=== PATIENT | female | born 2000 ===

== ENCOUNTER → 2021-05-13 | Outpatient (CLI) | payer SELFPAY ==
[2021-05-15 11:11] LABS: CHLAMYDIA BY NAA Positive (Negative); GONOCOCCUS BY NAA Negative (Negative); TRICH VAG BY NAA Positive (Negative)
== END | disposition home or self-care (01) ==
LOC: LAB SHORT 11:58
PROVIDERS: Physician Assistant
DX: Z72.51 High risk heterosexual behavior (principal)
CPT/HCPCS: 87070; 87205; 87491; 87591; 87661

== ENCOUNTER → 2023-05-17 | Outpatient (CLI) | payer OTHER | LOC: LAB SHORT 13:25 → LAB 13:25 | DX: R82.81 Pyuria (principal) | CPT/HCPCS: 87086 ==

== ENCOUNTER → 2023-06-18 | Outpatient (CLI) | payer OTHER ==
[2023-06-19 11:08] LABS: G. vaginalis (DNA Probe) Positive (NEGATIVE); T. vaginalis (DNA Probe) Negative (NEGATIVE)
[2023-06-19 11:09] LABS: Candida species (DNA Probe) Negative (NEGATIVE)
[2023-06-21 01:08] LABS: CHLAMYDIA TRACHOMATIS, NAA Negative (Negative)
== END | disposition home or self-care (01) ==
LOC: LAB 19:03 → LAB SHORT 19:03
PROVIDERS: Obstetrics & Gynecology
DX: Z11.3 Encounter for screening for infections with a predominantly sexual mode of transmission (principal); N89.8 Other specified noninflammatory disorders of vagina
CPT/HCPCS: 87480; 87491; 87510; 87591; 87660; G0145

== ENCOUNTER 2024-09-04 20:15 | Observation (INO) | payer OTHER ==
[~2024-09-04] VITALS: Ht 157.5 cm; Wt 85.7 kg
[2024-09-04 20:47] LABS: Hematocrit 43.2 % (33.0-51.0); Hemoglobin 14.5 g/dL (11.5-16.0); Mean Corpuscular HGB Conc 33.6 g/dL (31.5-36.5); Mean Corpuscular Volume 93 fL (80-100); Mean Platelet Volume 10.8 fL (9.1-12.4); Platelet Count 247 K/mm3 (150-400); RDW Coefficient Variation 12.3 % (11.7-14.2); RDW Standard Deviation 42.1 fL (35.1-46.3); Red Blood Cell Count 4.67 M/mm3 (3.80-5.20); White Blood Cell Count 11.94 K/mm3 (4.00-11.30)
[2024-09-04 21:03] LABS: Ethanol (Alcohol), Blood, Med <3 mg/dL; Salicylate <1.7 mg/dL (2.8-20.0)
[2024-09-04 21:06] LABS: Acetaminophen, Random <2.0 ug/mL (10.0-30.0); Alanine Aminotransfer (ALT/SGP 19 U/L (12-78); Albumin, Blood 3.6 g/dL (3.4-5.0); Alk Phos 52 U/L (50-136); Anion Gap 19 mmol/L (3-11); Aspartate Aminotrans (AST/SGOT 26 U/L (12-37); Bilirubin, Total 0.3 mg/dL (0.1-1.0); Blood Urea Nitrogen 15 mg/dL (8-24); Bun/Creatinine Ratio 12.8 (12.0-20.0); CO2, Blood 19 mmol/L (21-32); Calcium, Blood 8.5 mg/dL (8.5-10.1); Chloride, Blood 101 mmol/L (98-108); Creatinine, Blood 1.17 mg/dL (0.40-1.00); Globulin, Blood 3.5 g/dL (2.2-4.0); Glomerular Filtration Rate 66 (60-); Glucose, Blood 347 mg/dL (70-99); Potassium, Blood 2.6 mmol/L (3.5-5.5); Sodium, Blood 136 mmol/L (136-145); Total Protein, Blood 7.1 g/dL (6.4-8.2)
[2024-09-04 21:15] LABS: BASOPHILS PERCENT MAN 0 % (0-2); EOSINOPHILS PERCENT MAN 0 % (0-6); LYMPHOCYTES ABSOLUTE MAN 6.32 K/mm3 (0.84-5.20); LYMPHOCYTES PERCENT MAN 53 % (21-46); MONOCYTES ABSOLUTE MAN 0.95 K/mm3 (0.16-1.47); MONOCYTES PERCENT MAN 8 % (4-13); NEUTROPHILS ABSOLUTE MAN 4.65 K/mm3 (1.96-9.15); SEG NEUTROPHILS PERCENT MAN 39 % (41-73); TOTAL CELLS COUNTED 100
[2024-09-04] MEDS ORDERED: NS 1,000 ML IV SCH (22:45)
[2024-09-04] MEDS ORDERED: Potassium Chl 20MEQ/Water100ML 100 ML IV SCH (22:45)
[2024-09-04] MEDS ORDERED: Potassium Chloride 20 MEQ TabCR PO ONE (22:45)
[2024-09-05] MEDS ORDERED: Ondansetron HCl 2 MG / ML 2ML Vial IV ONE (04:10)
[2024-09-05 04:21] LABS: Base Excess Venous -14.4 mmol/L; Bicarbonate Venous 14.1 mmol/L (24.0-30.0); pH Blood Venous 7.25 (7.34-7.37)
[2024-09-05 04:23] LABS: PCO2 Venous 29.3 mmHg (38-42)
[2024-09-05 04:33] LABS: U Amphetamine Screen Not Detected; U Barbituate Screen Not Detected; U Benzodiazapine Screen Not Detected; U Buprenorphine Screen Not Detected; U Cannabinoids Screen DETECTED; U Cocaine Screen DETECTED; U Methadone Screen Not Detected; U Methamphetamine Screen Not Detected; U Opiates Screen Not Detected; U Oxycodone Screen Not Detected; U Phencyclidine Screen Not Detected
[2024-09-05] MEDS ORDERED: FLU VACC TS2024-25(6MOS UP)/PF 45 MCG/0.5 ML SYRINGE IM ONE (06:05)
[2024-09-05] MEDS ORDERED: Ondansetron HCl 2 MG / ML 2ML Vial IV PRN (06:05)
[2024-09-05] MEDS ORDERED: Acetaminophen 325 MG TABLET PO PRN (06:05)
[2024-09-05 07:00] LABS: Bun/Creatinine Ratio 16.4 (12.0-20.0); Calcium, Blood 8.6 mg/dL (8.5-10.1); Creatinine, Blood 0.67 mg/dL (0.40-1.00); Potassium, Blood 5.9 mmol/L (3.5-5.5)
[2024-09-05] MEDS ORDERED: Lactated Ringer's 1,000 ML IV SCH (07:00)
[2024-09-05 08:30] LABS: Base Excess Venous -1.7 mmol/L; Bicarbonate Venous 21.5 mmol/L (24.0-30.0); PCO2 Venous 53.4 mmHg (38-42); pH Blood Venous 7.28 (7.34-7.37)
[2024-09-05 12:25] VITALS: BP 151/96
[2024-09-05 13:43] LABS: Calcium, Blood 8.4 mg/dL (8.5-10.1); Creatinine, Blood 0.67 mg/dL (0.40-1.00); Potassium, Blood 3.5 mmol/L (3.5-5.5)
[2024-09-05 15:34] VITALS: BP 144/96
[2024-09-05] MEDS ORDERED: Dronabinol 2.5 MG Cap PO SCH (16:30)
[2024-09-05] MEDS ORDERED: D5W-LR 1,000 ML IV SCH (16:30)
--- NOTE | 2024-09-05 19:00 | NUR ---
SHIFT SUMMARY PT A&OX4, VSS, TOLERATING MINIMAL FLUIDS, AND DENIED PAIN. PT CONT TO C/O NAUSEA AND FATIGUE. BLOOD SUGAR LOW 69 TOWARDS END OF SHIFT, JUICE OFFERED, AND BLOOD SUGAR IMPROVED AND WNL AT 80. D5LR CONT TO INFUSE PER ORDER. NO OTHER ACUTE CHANGES. CALL LIGHT WITHIN REACH AND PT ABLE TO MAKE NEEDS KNOWN.
[2024-09-05 19:24] VITALS: BP 129/79
[2024-09-05] MEDS ORDERED: Famotidine 20 MG Tab PO SCH (21:00)
--- NOTE | 2024-09-06 03:46 | NUR ---
SHIFT SUMMARY PT IS A/O X4, ABLE TO MAKE HER NEEDS KNOWN, COOPERATIVE WITH CARE. AMBULATES WITH SBA D/T REPORTING WEAKNESS R/T NO PO NUTRITION DURING THIS SHIFT. ENCOURAGED PO FLUIDS. BG Q6: 94. TELE:NSR @80, PT DENIES PAIN/PRESSURE/SOB. D5LR INFUSING @100MLS/HR. NO ACUTE EVENTS DURING THIS SHIFT. BED AT THE LOWEST POSITION, CALL LIGHT W/I REACH. FRIENDS BY THE BEDSIDE AT , AND A FEMALE FRIEND SPENDING THE NIGHT IN THE HOSPITAL ROOM WITH THE PT FOR SUPPORT.
[2024-09-06 04:13] VITALS: BP 141/100
[2024-09-06 05:45] LABS: Bicarbonate Venous 26.6 mmol/L (24.0-30.0); PCO2 Venous 44.1 mmHg (38-42); pH Blood Venous 7.41 (7.34-7.37)
[2024-09-06 06:30] LABS: Albumin, Blood 3.3 g/dL (3.4-5.0); Bilirubin, Total 0.4 mg/dL (0.1-1.0); Bun/Creatinine Ratio 2.4 (12.0-20.0); Calcium, Blood 8.6 mg/dL (8.5-10.1); Creatinine, Blood 0.82 mg/dL (0.40-1.00); Globulin, Blood 3.2 g/dL (2.2-4.0); Potassium, Blood 3.7 mmol/L (3.5-5.5); Total Protein, Blood 6.5 g/dL (6.4-8.2)
[2024-09-06 08:00] VITALS: BP 130/93
[2024-09-06] MEDS ORDERED: Enoxaparin 40 MG/0.4 ML SYR SC SCH (09:00)
[2024-09-06] MEDS ORDERED: ONDA4ODT MM (11:59)
[2024-09-06] MEDS ORDERED: FAMO20 PO (11:59)
--- NOTE | 2024-09-06 14:14 | NUR ---
DISCHARGE NOTE PT DISCHARGED HOME AT 1405. PT PROVIDED W/ VERBAL AND WRITTEN INSTRCUTIONS AND REPORTED UNDERSTANDING. PT A&OX4, VSS, AMB IND, TOLERATING SMALL AMOUNTS OF PO, VOIDING, AND DENIED PAIN. BELONGINGS WERE RETURNED AND PT ESCOURTED OUT BY HER FRIEND.
== END 2024-09-06 14:12 | disposition home or self-care (01) ==
LOC: ER 20:15 → MEDS 20:16 → ERHOLD 20:16 → MEDS 09-05 12:14 → UNDODEPER 09-05 12:18 → ENPENDDIS 09-06 11:49 → MEDS 09-06 14:12
PROVIDERS: Internal Medicine; Student in an Organized Health Care Education/Training Program; ADMIT Student in an Organized Health Care Education/Training Program
DX: T40.5X1A Poisoning by cocaine, accidental (unintentional), initial encounter (principal); R55 Syncope and collapse; F14.10 Cocaine abuse, uncomplicated; R73.9 Hyperglycemia, unspecified; E87.21 Acute metabolic acidosis; E87.6 Hypokalemia; J45.909 Unspecified asthma, uncomplicated; Z88.8 Allergy status to other drugs, medicaments and biological substances
CPT/HCPCS: 36415; 74176; 80048; 80053; 80320; 81025; 82010; 82803; 82947; 83036; 83605; 83735; 85025; 93005; 93010; 96361; 96365; 96366; 96375; 96376; 99285-25; A9270; G0378; G0480; J2405; J3480; J7030; J7120; J7121; Q0167

== ENCOUNTER → 2024-10-07 | Outpatient (CLI) | payer OTHER ==
[~2024-10-07] MED LIST: FAMO20 PO; ONDA4ODT MM
[2024-10-07 21:44] LABS: Chlamydia Trachomatis Vaginal NOT DETECTED (NOT DETECT); Neisseria Gonorrhoea Vaginal NOT DETECTED (NOT DETECT)
== END ==
LOC: LAB 16:20 → LAB SHORT 16:20
PROVIDERS: Physician Assistant
DX: Z11.3 Encounter for screening for infections with a predominantly sexual mode of transmission (principal)
CPT/HCPCS: 87491; 87591

== ENCOUNTER 2025-03-24 23:09 | Inpatient (IN) | payer SELFPAY ==
[~2025-03-24] VITALS: Ht 160 cm; Wt 85.7 kg
[~2025-03-24 23:09] MED LIST changes: +Etomidate 2MG / ML 10ML Vial IV ONE; +Ketamine HCL 10 MG/ML 5ML SYR IV ONE; +Midazolam HCl 1MG / ML 2ML Vial IV ONE; +SuccINYLCHOLINE Chloride 100 MG/5 ML 5MLSYR IV ONE
[2025-03-24] MEDS ORDERED: DiphenhydrAMINE HCl 50 MG/ML 1ML Vial IV ONE (23:15)
[2025-03-24] MEDS ORDERED: EpiNEPhrine 1 MG/1 ML 1ML Vial IM ONE (23:20)
[2025-03-24 23:34] LABS: pH Blood Venous 7.41 (7.34-7.37)
[2025-03-24] MEDS ORDERED: Ketamine HCl 100 MG / ML 5ML Vial IV ONE (23:40)
[2025-03-24 23:58] LABS: BASOPHILS ABSOLUTE AUTO 0.01 K/mm3 (0.00-0.23); BASOPHILS PERCENT AUTO 0 % (0-2); EOSINOPHILS ABSOLUTE AUTO 0.04 K/mm3 (0.00-0.68); EOSINOPHILS PERCENT AUTO 1 % (0-6); Hematocrit 46.0 % (33.0-51.0); Hemoglobin 15.8 g/dL (11.5-16.0); IMMATURE GRAN ABSOLUTE AUTO 0.01 K/mm3 (0.00-0.10); IMMATURE GRAN PERCENT AUTO 0 % (0-1); LYMPHOCYTES ABSOLUTE AUTO 4.07 K/mm3 (0.84-5.20); LYMPHOCYTES PERCENT AUTO 56 % (21-46); MONOCYTES ABSOLUTE AUTO 0.54 K/mm3 (0.16-1.47); MONOCYTES PERCENT AUTO 8 % (4-13); Mean Corpuscular HGB Conc 34.3 g/dL (31.5-36.5); Mean Corpuscular Volume 89 fL (80-100); NEUTROPHILS ABSOLUTE AUTO 2.55 K/mm3 (1.96-9.15); NEUTROPHILS PERCENT AUTO 35 % (41-73); NRBC ABSOLUTE 0.00 K/mm3 (0.00-0.02); NRBC Auto 0.0 /100 WBC (0.0-0.2); Platelet Count 283 K/mm3 (150-400); RDW Coefficient Variation 12.1 % (11.7-14.2); RDW Standard Deviation 40.0 fL (35.1-46.3)
[2025-03-25] VITALS (62 sets, daily range): BP systolic 112–163; BP diastolic 60–151
[2025-03-25 00:10] LABS: Alanine Aminotransfer (ALT/SGP 23.0 U/L (12-78); Albumin, Blood 3.6 g/dL (3.4-5.0); Albumin/Globulin Ratio 0.9 (0.8-1.8); Anion Gap 11.0 mmol/L (3-11); Aspartate Aminotrans (AST/SGOT 21.0 U/L (12-37); Bilirubin, Total 0.4 mg/dL (0.1-1.0); Blood Urea Nitrogen 14.0 mg/dL (8-24); CO2, Blood 20.0 mmol/L (21-32); Calcium, Blood 8.4 mg/dL (8.5-10.1); Chloride, Blood 108.0 mmol/L (98-108); Creatinine, Blood 0.98 mg/dL (0.40-1.00); Globulin, Blood 4.0 g/dL (2.2-4.0); Glucose, Blood 103.0 mg/dL (70-99); Magnesium, Blood 2.2 mg/dL (1.6-2.4); Potassium, Blood 3.5 mmol/L (3.5-5.5); Sodium, Blood 135.0 mmol/L (136-145); Total Protein, Blood 7.6 g/dL (6.4-8.2)
[2025-03-25] MEDS ORDERED: Albuterol 2.5 MG/3 ML VIAL INH PRN (00:30)
[2025-03-25] MEDS ORDERED: Albuterol 2.5 MG/3 ML VIAL INH SCH (00:30)
[2025-03-25] MEDS ORDERED: FentaNYL Citrate 50 MCG/ML 2 ML Injection IV PRN ×2 (00:30→09:40)
[2025-03-25] MEDS ORDERED: Midazolam HCl 1MG / ML 2ML Vial IV PRN (00:35)
[2025-03-25 00:39] LABS: U Amphetamine Screen Not Detected; U Barbituate Screen Not Detected; U Benzodiazapine Screen Not Detected; U Buprenorphine Screen Not Detected; U Cannabinoids Screen DETECTED; U Cocaine Screen Not Detected; U Methadone Screen Not Detected; U Methamphetamine Screen Not Detected; U Opiates Screen Not Detected; U Oxycodone Screen Not Detected; U Phencyclidine Screen Not Detected
[2025-03-25] MEDS ORDERED: NS 500 ML IV SCH (02:10)
[2025-03-25] MEDS ORDERED: NS 500 ML IV ONE (02:10)
[2025-03-25] MEDS ORDERED: Hydrogen Peroxide 1.5 % Solution MT SCH (04:00)
[2025-03-25 04:01] LABS: BASOPHILS ABSOLUTE AUTO 0.01 K/mm3 (0.00-0.23); BASOPHILS PERCENT AUTO 0 % (0-2); EOSINOPHILS ABSOLUTE AUTO 0.01 K/mm3 (0.00-0.68); EOSINOPHILS PERCENT AUTO 0 % (0-6); Hematocrit 42.6 % (33.0-51.0); Hemoglobin 14.8 g/dL (11.5-16.0); IMMATURE GRAN ABSOLUTE AUTO 0.05 K/mm3 (0.00-0.10); IMMATURE GRAN PERCENT AUTO 0 % (0-1); LYMPHOCYTES ABSOLUTE AUTO 0.76 K/mm3 (0.84-5.20); LYMPHOCYTES PERCENT AUTO 6 % (21-46); MONOCYTES ABSOLUTE AUTO 0.17 K/mm3 (0.16-1.47); MONOCYTES PERCENT AUTO 1 % (4-13); Mean Corpuscular HGB Conc 34.7 g/dL (31.5-36.5); Mean Corpuscular Volume 90 fL (80-100); NEUTROPHILS ABSOLUTE AUTO 12.91 K/mm3 (1.96-9.15); NEUTROPHILS PERCENT AUTO 93 % (41-73); NRBC ABSOLUTE 0.00 K/mm3 (0.00-0.02); NRBC Auto 0.0 /100 WBC (0.0-0.2); Platelet Count 225 K/mm3 (150-400); RDW Coefficient Variation 11.9 % (11.7-14.2); RDW Standard Deviation 39.2 fL (35.1-46.3)
[2025-03-25 04:23] LABS: Magnesium, Blood 1.8 mg/dL (1.6-2.4)
[2025-03-25 04:24] LABS: Alanine Aminotransfer (ALT/SGP 22.0 U/L (12-78); Albumin, Blood 3.8 g/dL (3.4-5.0); Albumin/Globulin Ratio 1.0 (0.8-1.8); Anion Gap 12.0 mmol/L (3-11); Aspartate Aminotrans (AST/SGOT 18.0 U/L (12-37); Bilirubin, Total 0.6 mg/dL (0.1-1.0); Blood Urea Nitrogen 12.0 mg/dL (8-24); CO2, Blood 19.0 mmol/L (21-32); Calcium, Blood 9.1 mg/dL (8.5-10.1); Chloride, Blood 108.0 mmol/L (98-108); Creatinine, Blood 0.8 mg/dL (0.40-1.00); Globulin, Blood 4.0 g/dL (2.2-4.0); Glucose, Blood 161.0 mg/dL (70-99); Potassium, Blood 3.6 mmol/L (3.5-5.5); Sodium, Blood 135.0 mmol/L (136-145); Total Protein, Blood 7.8 g/dL (6.4-8.2)
[2025-03-25] MEDS ORDERED: Pantoprazole Sodium 40 MG Injection IV SCH (06:00)
--- NOTE | 2025-03-25 06:05 | NUR ---
SHIFT SUMMARY: Pt arrived to the unit intubated due to angioedema from a possible allergic reaction. ED staff advised that she had been difficult to sedate and she arrived on Precedex, propofol, and Fentanyl gtt. She is now on propofol only and adequately sedated. When stimulated she does get a little agitated. She has significant secretions and lips and tongue have still be swollen, but have improved. BP is stable, HR 60s-70s.
--- NOTE | 2025-03-25 06:24 | NUR ---
Pt woke up enough to write a note and ask to call her roommate and update her. I called her roommate, Teresa, and updated.
[2025-03-25] MEDS ORDERED: Cetylpyridinium Chloride 1 EA MISC MT SCH (08:00)
[2025-03-25] MEDS ORDERED: Loratadine 5 MG/5 ML 5MLUDC PO SCH (09:00)
[2025-03-25] MEDS ORDERED: Enoxaparin 40 MG/0.4 ML SYR SC SCH (09:00)
--- NOTE | 2025-03-25 10:26 | NUR ---
FRIEND CONTACT: PER PT'S WRITTEN REQUEST, CALL PLACED TO FRIEND ASHISH W/ ANGEL LUIS. ASHISH LIVES IN [place] BUT COMMUNICATES REGULARLY W/ ADRIEL. ASHISH STATES THAT THE PT WAS HOSPITALIZED ONE OTHER TIME IN AUGUST FOLLOWING THE INGESTION OF COCAINE BUT HAS NOT HAD ANY OTHER MAJOR HEALTH PROBLEMS. HE STATES THAT "HER FACE RANDOMLY GETS SWOLLEN BUT WE ALWAYS CHALK IT UP TO ALLERGIES." HE STATES THAT SHE HAS NEVER COMPLAINED OF DIFFICULTY BREATHING. WHEN ASKED ABOUT FAMILY, ASHISH STATES THAT THE PT MOVED HERE TO GO [place] & DOES NOT HAVE ANY FAMILY LOCALLY. HER MOTHER IS REPORTEDLY HOMELESS IN [place] SO THE PT HAS DIFFICULTY KEEPING IN CONTACT W/ HER. HE REPORTS BEING HER MAIN POINT OF CONTACT IN ADDITION TO HER ROOMMATE, BONNY. ALMAEMMY IS GRATEFUL FOR THE UPDATE & CAN BE REACHED AT [phone].
--- NOTE | 2025-03-25 11:30 | NUR ---
AM NOTE: THIS RN ASSUMED CARE OF PT AT APPROX 0700, BEDSIDE REPORT FROM SHAHIDA RN. PT INTUBATED, ON PROPOFOL GTT FOR SEDATION ALTHOUGH ALERT THIS AM. PT ABLE TO COMMUNICATE NEEDS W/ PEN & PAPER, USING CELL PHONE INDEPENDENTLY. PT INTERMITTENTLY BECOMING ANXIOUS, TEARFUL, FEARFUL; COUGHING & NOT TOLERATING VENT. VERSED & FENTANYL IVP PER EMAR SEDATION ADJUNCTS & FOR PAIN. RASS -2 WITH ADJUNCTS. SPO2 >90% ON VENT; SETTINGS AC/VC 14/450/5/30%. HR 70-80'S, UP TO 100'S W/ ANXIETY EPISODES. SINUS RHYTHM ON MONITOR. SBP 130-140'S, MAP >65. AFEBRILE W/ CORE TEMP. AQUINO CATH PATENT & DRAINING YELLOW URINE TO GRAVITY. OGT TO LIS. PT RESTING IN BED AT THIS TIME, CALL LIGHT IN REACH.
--- NOTE | 2025-03-25 17:20 | NUR ---
END OF SHIFT NOTE: PT REMAINS INTUBATED & SEDATED. PROPOFOL GTT AT 50 MCG/KG/MIN & PRECEDEX GTT AT 0.7 MCG/KG/HR TO MAINTAIN RASS -1/-2. PRN IVP VERSED NEEDED FOR AGITATION. CALL PLACED TO DR. CARTER AT 1725 DUE TO BRADYCARDIA ON PRECEDEX GTT; ORDER RECEIVED TO INITIATE VERSED GTT & TITRATE PRECEDEX GTT OFF. OTHER VSS. SBP 130-140'S, MAP >65. SPO2 >90% ON VENT. SETTINGS AC/VC 14/450/5/30%. AFEBRILE. AQUINO CATH PATENT & DRAINING PALE YELLOW URINE TO GRAVITY; >1800ML URINE OUTPUT THIS SHIFT. NO BM'S. NGT TO LIS. PT'S ROOMMATE, ALIVEA, PROVIDED W/ UPDATE THIS AFTERNOON.
[2025-03-25] MEDS ORDERED: Midazolam HCL 50 MG in NS 40 ML IV PRN (17:30)
--- NOTE | 2025-03-25 18:44 | NUR ---
UPDATE: PT'S ROOMMATE, BONNY, AT BEDSIDE TO VISIT THIS EVENING. BONNY STATES THAT THE PT WENT OUT TO A BAR LAST NIGHT & BONNY DID NOT GO WITH HER. SHE REPORTEDLY LOST HER PURSE WHILE SHE WAS OUT & WAS STRUGGLING TO FIND IT. BONNY STATES SHE IS UNSURE WHO BROUGHT THE PT TO THE ER OR WHO SHE WAS WITH. BONNY PLANS TO BE BACK TO VISIT THE PT TOMORROW.
--- NOTE | 2025-03-25 21:54 | NUR ---
ASSUMPTION OF CARE: ASSUMED CARE AT START OF SHIFT (1899). PT IS DOING WELL, THEY ARE INTUBATED AND SEDATED IN BED. ON PROPOFOL, PRECEDEX, AND VERSED GTT PER EMR ORDERS. PT IS RESPONSIVE TO PAINFUL STIMULI AND NOT FOLLOWING COMMANDS AT THIS TIME. VENT: ACVC 14/450/5/30% SPO2 >95% LUNG SOUNDS ARE WHEEZY AND DIMINISHED IN BASES. SINUS RYTHM WITH SBP: 130-140'S MAP >65 HR: 60-70'S. IV: PERIPHERAL IV'S IN R&L FOREARMS. AQUINO CATHETER IN PLACE AND DRAINING TO GRAVITY. OG PLACED AND CONNECTED TO LOW INTERMITTENT SUCTION. LINES, CORDS, AND TUBES PLACED OUT OF REACH. CALL LIGHT PLACED WITHIN REACH.
[2025-03-26] VITALS (17 sets, daily range): BP systolic 99–183; BP diastolic 66–151
[2025-03-26 04:17] LABS: BASOPHILS ABSOLUTE AUTO 0.02 K/mm3 (0.00-0.23); BASOPHILS PERCENT AUTO 0 % (0-2); EOSINOPHILS ABSOLUTE AUTO 0.00 K/mm3 (0.00-0.68); EOSINOPHILS PERCENT AUTO 0 % (0-6); Hematocrit 38.2 % (33.0-51.0); Hemoglobin 13.1 g/dL (11.5-16.0); IMMATURE GRAN ABSOLUTE AUTO 0.07 K/mm3 (0.00-0.10); IMMATURE GRAN PERCENT AUTO 1 % (0-1); LYMPHOCYTES ABSOLUTE AUTO 1.60 K/mm3 (0.84-5.20); LYMPHOCYTES PERCENT AUTO 13 % (21-46); MONOCYTES ABSOLUTE AUTO 1.11 K/mm3 (0.16-1.47); MONOCYTES PERCENT AUTO 9 % (4-13); Mean Corpuscular HGB Conc 34.3 g/dL (31.5-36.5); Mean Corpuscular Volume 89 fL (80-100); NEUTROPHILS ABSOLUTE AUTO 9.43 K/mm3 (1.96-9.15); NEUTROPHILS PERCENT AUTO 77 % (41-73); NRBC ABSOLUTE 0.00 K/mm3 (0.00-0.02); NRBC Auto 0.0 /100 WBC (0.0-0.2); Platelet Count 228 K/mm3 (150-400); RDW Coefficient Variation 12.1 % (11.7-14.2); RDW Standard Deviation 39.5 fL (35.1-46.3)
[2025-03-26 04:42] LABS: Alanine Aminotransfer (ALT/SGP 16.0 U/L (12-78); Albumin, Blood 3.4 g/dL (3.4-5.0); Albumin/Globulin Ratio 0.9 (0.8-1.8); Anion Gap 9.0 mmol/L (3-11); Aspartate Aminotrans (AST/SGOT 12.0 U/L (12-37); Bilirubin, Total 0.3 mg/dL (0.1-1.0); Blood Urea Nitrogen 8.0 mg/dL (8-24); CO2, Blood 23.0 mmol/L (21-32); Calcium, Blood 8.5 mg/dL (8.5-10.1); Chloride, Blood 112.0 mmol/L (98-108); Creatinine, Blood 0.72 mg/dL (0.40-1.00); Globulin, Blood 3.6 g/dL (2.2-4.0); Glucose, Blood 121.0 mg/dL (70-99); Magnesium, Blood 1.9 mg/dL (1.6-2.4); Phosphorus, Blood 2.5 mg/dL (2.5-4.9); Potassium, Blood 3.1 mmol/L (3.5-5.5); Sodium, Blood 141.0 mmol/L (136-145); Total Protein, Blood 7.0 g/dL (6.4-8.2)
--- NOTE | 2025-03-26 07:17 | NUR ---
SHIFT SUMMARY: PT IS DOING WELL AND RESTING IN BED. PT IS STILL INTUBATED AND SEDATED WITH PROPOFOL AND VERSED GTT PER EMR ORDERS. PRECEDEX GTT HAS BEEN ON STANDBY SINCE 2099. PT HAS BECOME MORE ALERT THE SHIFT PROGRESS, THEY ARE OPENING EYE SPONTANEOUSLY AND ABLE TO FOLLOW SIMPLE COMMANDS. PT WILL COMMUNICATE WITH EITHER PEN/PAPER OR BY TYPING ON THEIR PHONE. VENT: ACVC- 14/450/5/30% PT WILL HAVE OCCASIONAL COUGHING EPISODES AND PRODUCE A LOT OF ORAL SECRETIONS. SINUS RYTHM, SBP:120'S MAP >65 HR:70-130'S. IV: POWERGLIDE IN LUE, PERIPHERAL IN R&L AC. AQUINO CATHETER IN PLACE AND DRAINGING TO GRAVITY. LINES, CORDS, AND TUBES PLACED OUT OF REACH. CALL LIGHT PLACED WITHIN REACH.
--- NOTE | 2025-03-26 16:02 | NUR ---
SHIFT NOTE: THIS RN ASSUMED CARE OF PT AT APPROX 0700, BEDSIDE REPORT FROM NOC RN. PT INTUBATED & SEDATED AT START OF SHIFT. EXTUBATED AT 0900 TO 4L NC, TRANSITIONED TO ROOM AIR W/ SPO2 >90%. HR 60-80'S ON PRECEDEX GTT, UP TO 100'S W/ PRECEDEX OFF. SINUS RHYTHM ON MONITOR. BP STABLE, MAP >65. AQUINO CATH IN PLACE, PATENT & DRAINING YELLOW URINE TO GRAVITY. PT'S ANGIOEDEMA APPEARS SIGNIFICANTLY IMPROVED FROM YESTERDAY. ABLE TO SPEAK, THOUGH VOICE IS VERY SOFT. ABLE TO REPOSITION SELF INDEPENDENTLY IN BED. RESTING IN BED AT THIS TIME, CALL LIGHT IN REACH.
--- NOTE | 2025-03-26 18:31 | NUR ---
TRANSFER NOTE PT TRANSFERRED FROM ICU, ORIENTED TO THE ROOM. ABLE TO MAKE NEEDS KNOWN.
[2025-03-26] MEDS ORDERED: Acetaminophen 160MG / 5ML 10.15 UDC PO PRN (22:30)
[2025-03-26] MEDS ORDERED: DiphenhydrAMINE HCl 50 MG/ML 1ML Vial IV ONE (23:20)
[2025-03-27 00:31] LABS: COMPLEMENT COMPONENT 4 33 mg/dL (10-40)
[2025-03-27 00:35] VITALS: BP 124/68
[2025-03-27 04:22] VITALS: BP 133/84
--- NOTE | 2025-03-27 07:19 | NUR ---
SHIFT SUMMARY; PATIENT SLEPT IN SHORT INTERVALS, HAS A SOFT WHISPER VOICE. AROUND 2200 SHE HAD SOME INCREASED TONGUE SWELLING. HOSPITALIST WAS CALLED AND ORDER FOR IV BENADRYL WAS GIVEN. THIS HELPED BUT THE TYLENOL DID NOT HELP HER SORE THROAT. TELE SB/SR @ 59 UNABLE TO DRAW AM LABS THRU POWERGLIDE.
[2025-03-27 07:44] VITALS: BP 134/82
[2025-03-27 09:12] LABS: BASOPHILS ABSOLUTE AUTO 0.01 K/mm3 (0.00-0.23); BASOPHILS PERCENT AUTO 0 % (0-2); EOSINOPHILS ABSOLUTE AUTO 0.00 K/mm3 (0.00-0.68); EOSINOPHILS PERCENT AUTO 0 % (0-6); Hematocrit 38.4 % (33.0-51.0); Hemoglobin 13.1 g/dL (11.5-16.0); IMMATURE GRAN ABSOLUTE AUTO 0.04 K/mm3 (0.00-0.10); IMMATURE GRAN PERCENT AUTO 0 % (0-1); LYMPHOCYTES ABSOLUTE AUTO 2.37 K/mm3 (0.84-5.20); LYMPHOCYTES PERCENT AUTO 26 % (21-46); MONOCYTES ABSOLUTE AUTO 0.62 K/mm3 (0.16-1.47); MONOCYTES PERCENT AUTO 7 % (4-13); Mean Corpuscular HGB Conc 34.1 g/dL (31.5-36.5); Mean Corpuscular Volume 91 fL (80-100); NEUTROPHILS ABSOLUTE AUTO 6.19 K/mm3 (1.96-9.15); NEUTROPHILS PERCENT AUTO 67 % (41-73); NRBC ABSOLUTE 0.00 K/mm3 (0.00-0.02); NRBC Auto 0.0 /100 WBC (0.0-0.2); Platelet Count 215 K/mm3 (150-400); RDW Coefficient Variation 12.4 % (11.7-14.2); RDW Standard Deviation 41.1 fL (35.1-46.3)
[2025-03-27 09:31] LABS: Alanine Aminotransfer (ALT/SGP 25.0 U/L (12-78); Albumin, Blood 3.7 g/dL (3.4-5.0); Albumin/Globulin Ratio 0.9 (0.8-1.8); Anion Gap 9.0 mmol/L (3-11); Aspartate Aminotrans (AST/SGOT 23.0 U/L (12-37); Bilirubin, Total 0.5 mg/dL (0.1-1.0); Blood Urea Nitrogen 13.0 mg/dL (8-24); CO2, Blood 23.0 mmol/L (21-32); Calcium, Blood 8.4 mg/dL (8.5-10.1); Chloride, Blood 113.0 mmol/L (98-108); Creatinine, Blood 0.86 mg/dL (0.40-1.00); Globulin, Blood 3.9 g/dL (2.2-4.0); Glucose, Blood 95.0 mg/dL (70-99); Potassium, Blood 2.8 mmol/L (3.5-5.5); Sodium, Blood 142.0 mmol/L (136-145); Total Protein, Blood 7.6 g/dL (6.4-8.2)
[2025-03-27 11:18] VITALS: BP 127/88
[2025-03-27] MEDS ORDERED: ALBU90OI INH (15:36)
[2025-03-27] MEDS ORDERED: Benadryl25 MG PO (15:36)
[2025-03-27] MEDS ORDERED: PRED20 PO (15:37)
[2025-03-27] MEDS ORDERED: EPINEPHRIN0.15 MG/03 INJ (15:37)
--- NOTE | 2025-03-27 16:18 | NUR ---
DISCHARGE NOTE PT DISCHARGED TO HOME, PICKED UP BY A FRIEND. IV AND PG REMOVED. MEDICATIONS FAXED TO THE PHARMACY OF HER CHOICE. DISCHARGE EDUCATION AND INFORMATION REVIEWED WITH THE PT AND PROVIDED. PERSONAL BELONGINGS RETURNED. CALL LIGHT WITHIN REACH, BED LOCKED AND IN THE LOWEST POSITION. WILL REPORT TO ONCOMING NURSE.
== END 2025-03-27 16:26 | disposition home or self-care (01) | DRG 915 ==
LOC: ER 23:09 → MEDS 03-25 00:29 → ICUE 03-25 00:29 → MEDS 03-26 18:21
PROVIDERS: Family Medicine; Internal Medicine Critical Care Medicine; Student in an Organized Health Care Education/Training Program; ADMIT Student in an Organized Health Care Education/Training Program
PROC: 0BH17EZ Insertion of Endotracheal Airway into Trachea, Via Natural or Artificial Opening (ICD-10-PCS; principal; 2025-03-24)
PROC: 0DH67UZ Insertion of Feeding Device into Stomach, Via Natural or Artificial Opening (ICD-10-PCS; 2025-03-25)
DX: T78.3XXA Angioneurotic edema, initial encounter (principal); J96.01 Acute respiratory failure with hypoxia; J45.901 Unspecified asthma with (acute) exacerbation; R00.0 Tachycardia, unspecified; F14.10 Cocaine abuse, uncomplicated; E87.6 Hypokalemia; D72.829 Elevated white blood cell count, unspecified; K21.9 Gastro-esophageal reflux disease without esophagitis; Z79.899 Other long term (current) drug therapy; Z91.041 Radiographic dye allergy status
CPT/HCPCS: 31500; 36415; 36430; 51702; 71045; 74018; 80053; 82803; 82947; 83605; 83735; 84100; 84132; 85025; 86160; 86900; 86901; 94002; 94003; 94640; 94645; 94664; 94760; 94762; 96372-59; 96374-59; 96375-59; 99285-25; A9270; C1751; J0166; J0330; J1200; J1650; J2250; J2470; J2704; J2919; J3010; J3480; J7040; J7050; J7120; P9059

== ENCOUNTER 2025-04-19 19:06 | Emergency (ER) | payer SELFPAY ==
[~2025-04-19] VITALS: Ht 157.5 cm; Wt 82.5 kg
[~2025-04-19 19:06] MED LIST changes: +ALBU90OI INH; +Benadryl25 MG PO; +EPINEPHRIN0.15 MG/03 INJ; -Etomidate 2MG / ML 10ML Vial IV ONE; -Ketamine HCL 10 MG/ML 5ML SYR IV ONE; -Midazolam HCl 1MG / ML 2ML Vial IV ONE; +PRED20 PO; -SuccINYLCHOLINE Chloride 100 MG/5 ML 5MLSYR IV ONE
[2025-04-19 19:45] LABS: BASOPHILS ABSOLUTE AUTO 0.01 K/mm3 (0.00-0.23); BASOPHILS PERCENT AUTO 0 % (0-2); EOSINOPHILS ABSOLUTE AUTO 0.09 K/mm3 (0.00-0.68); EOSINOPHILS PERCENT AUTO 1 % (0-6); Hematocrit 41.1 % (33.0-51.0); Hemoglobin 14.0 g/dL (11.5-16.0); IMMATURE GRAN ABSOLUTE AUTO 0.01 K/mm3 (0.00-0.10); IMMATURE GRAN PERCENT AUTO 0 % (0-1); LYMPHOCYTES ABSOLUTE AUTO 2.79 K/mm3 (0.84-5.20); LYMPHOCYTES PERCENT AUTO 39 % (21-46); MONOCYTES ABSOLUTE AUTO 0.47 K/mm3 (0.16-1.47); MONOCYTES PERCENT AUTO 7 % (4-13); Mean Corpuscular HGB Conc 34.1 g/dL (31.5-36.5); Mean Corpuscular Volume 91 fL (80-100); NEUTROPHILS ABSOLUTE AUTO 3.71 K/mm3 (1.96-9.15); NEUTROPHILS PERCENT AUTO 53 % (41-73); NRBC ABSOLUTE 0.00 K/mm3 (0.00-0.02); NRBC Auto 0.0 /100 WBC (0.0-0.2); Platelet Count 240 K/mm3 (150-400); RDW Coefficient Variation 12.1 % (11.7-14.2); RDW Standard Deviation 40.1 fL (35.1-46.3)
[2025-04-19 20:12] LABS: Alanine Aminotransfer (ALT/SGP 18.0 U/L (12-78); Albumin, Blood 3.7 g/dL (3.4-5.0); Albumin/Globulin Ratio 1.1 (0.8-1.8); Anion Gap 8.0 mmol/L (3-11); Aspartate Aminotrans (AST/SGOT 15.0 U/L (12-37); Bilirubin, Total 0.2 mg/dL (0.1-1.0); Blood Urea Nitrogen 14.0 mg/dL (8-24); CO2, Blood 26.0 mmol/L (21-32); Calcium, Blood 8.7 mg/dL (8.5-10.1); Chloride, Blood 107.0 mmol/L (98-108); Creatinine, Blood 0.94 mg/dL (0.40-1.00); Globulin, Blood 3.5 g/dL (2.2-4.0); Glucose, Blood 70.0 mg/dL (70-99); Potassium, Blood 3.5 mmol/L (3.5-5.5); Sodium, Blood 137.0 mmol/L (136-145); Total Protein, Blood 7.2 g/dL (6.4-8.2)
[2025-04-19] MEDS ORDERED: EPIPEN0.3 MG/0.3 IM (22:58)
[2025-04-19 23:00] VITALS: BP 128/79
== END 2025-04-19 23:11 | disposition home or self-care (01) ==
LOC: ER 19:06
PROVIDERS: Emergency Medicine
DX: T78.2XXA Anaphylactic shock, unspecified, initial encounter (principal); T78.3XXA Angioneurotic edema, initial encounter; J45.909 Unspecified asthma, uncomplicated; Z79.52 Long term (current) use of systemic steroids; Z79.899 Other long term (current) drug therapy; Z91.041 Radiographic dye allergy status
CPT/HCPCS: 71045; 80053; 84703; 85025; 96374; 96375; 99284-25; A9270; J2919